=== PATIENT | female | born 1965 | race Caucasian/White ===

== ENCOUNTER 2020-03-09 10:50 | Inpatient (IN) | payer SELFPAY ==
[~2020-03-09] VITALS: Ht 160 cm; Wt 88.0 kg
[2020-03-09] MEDS ORDERED: ONDANSETRON HCL 4MG/2ML INJ IV STA (12:20)
[2020-03-09] MEDS ORDERED: MORPHINE SULFATE 4 MG/ML CPJ (NOT FOR IM USE) IV STA (12:20)
[2020-03-09] MEDS ORDERED: SODIUM CHLORIDE 0.9% 1,000 ML IV ONE (12:20)
[2020-03-09 12:32] LABS: BASOPHILS % 0.4 % (0.0-2.0); EOSINOPHILS % 0.3 % (0.0-5.0); HEMATOCRIT. 37.4 % (36.0-48.0); HEMOGLOBIN. 12.4 g/dL (12.0-16.0); LYMPHOCYTES % 20.3 % (20.0-50.0); MEAN CORPUSCULAR HEMOGLOBIN 24.9 pg (28.0-32.0); MEAN CORPUSCULAR VOLUME 74.8 fL (81.0-99.0); MEAN PLATELET VOLUME 7.5 fl (7.4-10.4); MONOCYTES % 4.2 % (2.0-8.0); NEUTROPHILS % 74.8 % (40.0-76.0); PLATELET 268 x1000/uL (130-400); RED CELL DISTRIBUTION WIDTH 17.9 % (11.6-14.6)
[2020-03-09 12:45] LABS: PROTHROMBIN TIME 10.9 sec (9.6-11.0)
[2020-03-09 12:49] LABS: CLARITY URINE CLEAR (CLEAR); COLOR URINE YELLOW (YELLOW); HCG SCREEN NEGATIVE; KETONES URINE NEGATIVE (NEGATIVE); LEUKOCYTE ESTERASE URINE TRACE (NEGATIVE); NITRITE URINE NEGATIVE (NEGATIVE); OCCULT BLOOD URINE NEGATIVE (NEGATIVE); PH URINE 5.5 (4.5-8.0); PROTEIN URINE 2+ (NEGATIVE); SPECIFIC GRAVITY URINE 1.021 (1.005-1.030); UROBILINOGEN URINE 0.2 E.U./dL (0.2-1.0)
[2020-03-09 13:22] LABS: CHLORIDE 107 mEq/L (98-107)
[2020-03-09] MEDS ORDERED: KETOROLAC 30MG/ML VIAL IV ONE (13:30)
[2020-03-09] MEDS ORDERED: IOHEXOL-300 100 ML BOTTLE ONE (14:58)
[2020-03-09] MEDS ORDERED: MORPHINE SULFATE 2 MG/ML CPJ (NOT FOR IM USE) IV PRN (16:45)
[2020-03-09] MEDS ORDERED: ACETAMINOPHEN 325MG TABLET PO PRN (16:45)
[2020-03-09] MEDS ORDERED: ONDANSETRON HCL 4MG/2ML INJ IV PRN (16:45)
[2020-03-09] MEDS: METOCLOPRAMIDE HCL 10MG/2ML VIAL IV SCH (18:07)
[2020-03-09] MEDS: PANTOPRAZOLE SODIUM 40 MG/VIAL IV SCH (18:07)
[2020-03-09] MEDS: PIPERACILLIN/TAZOBACTAM 3.375 G in DEXTROSE 5% WATER 50 ML IV SCH (18:07)
[2020-03-09 20:00] VITALS: BP 132/72
[2020-03-09] MEDS: HEPARIN 5000 UNITS/ML VIAL SUBCUT SCH (20:26)
[2020-03-09] MEDS ORDERED: TRAZODONE HCL 50MG TABLET PO PRN (21:00)
[2020-03-09] MEDS ORDERED: DEXTROSE 50% WATER 50ML SYRINGE IV PRN (22:45)
[2020-03-09] MEDS ORDERED: ATOR20TA65 MT (23:47)
[2020-03-09] MEDS ORDERED: ASPI-1497 MT (23:47)
[2020-03-09] MEDS ORDERED: GLYB1TAB35 MT (23:47)
[2020-03-09] MEDS ORDERED: LOSA1TAB37 MT (23:47)
[2020-03-10] VITALS: BP 136/71
[2020-03-10] MEDS: METOCLOPRAMIDE HCL 10MG/2ML VIAL IV SCH ×5 (00:02→23:57)
[2020-03-10] MEDS: PIPERACILLIN/TAZOBACTAM 3.375 G in DEXTROSE 5% WATER 50 ML IV SCH ×5 (00:02→23:57)
[2020-03-10 04:00] VITALS: BP 135/76
[2020-03-10] MEDS: DEXT 5%/0.45% NACL 1000ML 1,000 ML IV SCH ×2 (05:07→18:07)
[2020-03-10] MEDS: BLOOD SUGAR DIAGNOSTIC STRIP TEST SCH ×4 (05:59→20:20)
[2020-03-10 07:21] LABS: CHLORIDE 106 mEq/L (98-107)
[2020-03-10 07:25] LABS: BASOPHILS % 0.2 % (0.0-2.0); EOSINOPHILS % 0.5 % (0.0-5.0); HEMATOCRIT. 32.8 % (36.0-48.0); HEMOGLOBIN. 10.6 g/dL (12.0-16.0); LYMPHOCYTES % 9.7 % (20.0-50.0); MEAN CORPUSCULAR HEMOGLOBIN 24.2 pg (28.0-32.0); MEAN PLATELET VOLUME 7.2 fl (7.4-10.4); MONOCYTES % 4.3 % (2.0-8.0); NEUTROPHILS % 85.3 % (40.0-76.0); PLATELET 252 x1000/uL (130-400); RED BLOOD CELL COUNT 4.38 mill/uL (4.2-5.4); RED CELL DISTRIBUTION WIDTH 17.4 % (11.6-14.6)
[2020-03-10 08:00] VITALS: BP_SYST 104; BP_SYST 136; BP_DIAS 56; BP_DIAS 75
[2020-03-10] MEDS ORDERED: PNEUMOCOCCAL 23-VAL P-SAC VAC 0.5 ML IM ONE (08:00)
[2020-03-10] MEDS: PANTOPRAZOLE SODIUM 40 MG/VIAL IV SCH (08:14)
[2020-03-10] MEDS: INSULIN LISPRO 100 UNITS/ML SUBCUT SCH ×4 (08:19→20:19)
[2020-03-10] MEDS: HEPARIN 5000 UNITS/ML VIAL SUBCUT SCH ×2 (08:22→20:18)
[2020-03-10 12:00] VITALS: BP 127/67
[2020-03-10] MEDS: LOSARTAN POTASSIUM 50 MG TABLET PO SCH ×2 (12:48→20:20)
[2020-03-10 16:00] VITALS: BP 100/50
[2020-03-10 20:16] VITALS: BP 112/64
[2020-03-10] MEDS ORDERED: ATORVASTATIN CALCIUM 20MG TABLET PO SCH (21:00)
[2020-03-11 00:04] VITALS: BP 106/64
[2020-03-11 04:51] VITALS: BP 100/50
[2020-03-11 05:59] LABS: CHLORIDE 106 mEq/L (98-107)
[2020-03-11 06:10] LABS: TOTAL IRON BINDING CAPACITY 355 ug/dL (250-450)
[2020-03-11 06:13] LABS: T4 FREE 1.15 ng/dL (0.76-1.46)
[2020-03-11 06:42] LABS: VITAMIN B12 SERUM 195 pg/mL (211-911)
[2020-03-11 06:55] LABS: BASOPHILS % 0.5 % (0.0-2.0); EOSINOPHILS % 3.9 % (0.0-5.0); HEMATOCRIT. 29.7 % (36.0-48.0); HEMOGLOBIN. 9.7 g/dL (12.0-16.0); MEAN CORPUSCULAR HEMOGLOBIN 24.5 pg (28.0-32.0); MEAN CORPUSCULAR VOLUME 75.3 fL (81.0-99.0); MEAN PLATELET VOLUME 7.2 fl (7.4-10.4); MONOCYTES % 6.2 % (2.0-8.0); NEUTROPHILS % 54.4 % (40.0-76.0); PLATELET 216 x1000/uL (130-400); RED BLOOD CELL COUNT 3.95 mill/uL (4.2-5.4); RED CELL DISTRIBUTION WIDTH 17.5 % (11.6-14.6)
[2020-03-11] MEDS: METOCLOPRAMIDE HCL 10MG/2ML VIAL IV SCH (06:55)
[2020-03-11] MEDS: BLOOD SUGAR DIAGNOSTIC STRIP TEST SCH (06:55)
[2020-03-11] MEDS: PIPERACILLIN/TAZOBACTAM 3.375 G in DEXTROSE 5% WATER 50 ML IV SCH (06:55)
[2020-03-11 08:00] VITALS: BP 103/64
[2020-03-11] MEDS: LOSARTAN POTASSIUM 50 MG TABLET PO SCH (08:02)
[2020-03-11] MEDS: DEXT 5%/0.45% NACL 1000ML 1,000 ML IV SCH (08:16)
[2020-03-11] MEDS: INSULIN LISPRO 100 UNITS/ML SUBCUT SCH (08:16)
[2020-03-11] MEDS: HEPARIN 5000 UNITS/ML VIAL SUBCUT SCH (09:00)
[2020-03-11 10:03] VITALS: BP 103/64
== END 2020-03-11 10:48 | disposition home or self-care (01) | DRG 254 ==
LOC: ER 10:50 → MICUSO 15:22 → 6WST 19:04
PROVIDERS: ADMIT Internal Medicine; ATTEND Internal Medicine
DX: K43.6 Other and unspecified ventral hernia with obstruction, without gangrene (principal); N17.9 Acute kidney failure, unspecified; E87.2 Acidosis; D72.829 Elevated white blood cell count, unspecified; E11.9 Type 2 diabetes mellitus without complications; E66.9 Obesity, unspecified; K43.9 Ventral hernia without obstruction or gangrene; K76.0 Fatty (change of) liver, not elsewhere classified; E78.00 Pure hypercholesterolemia, unspecified; E78.5 Hyperlipidemia, unspecified; E86.9 Volume depletion, unspecified; I10 Essential (primary) hypertension; Z79.82 Long term (current) use of aspirin; Z79.899 Other long term (current) drug therapy; Z90.49 Acquired absence of other specified parts of digestive tract; Z98.891 History of uterine scar from previous surgery; Z68.34 Body mass index [BMI] 34.0-34.9, adult
CPT/HCPCS: 36415; 74018; 74177; 80053; 81003; 82607; 82962; 83540; 83550; 83605; 83735; 84439; 84443; 84484; 84703; 85025; 85044; 90732; 93005; 93306; 99285; C9113; J1644; J1815; J1885; J2270; J2405; J2543; J2765; J7030; J7060; Q9967